=== PATIENT | female | born 1995 | race Caucasian/White ===

== ENCOUNTER 2023-10-25 12:21 | Inpatient (IN) | payer OTHER ==
[2023-10-25] MEDS ORDERED: morphine CARPU-JECT 4 MG/1 ML DISP.SYRIN IVPUSH ONE ×2 (13:07→19:01)
[2023-10-25] MEDS ORDERED: morphine SULFATE 4 MG/ML VIAL ONE ×2 (13:17→19:05)
[2023-10-25] MEDS ORDERED: ONDANSETRON 4 MG/2 ML VIAL IVPUSH ONE (13:26)
[2023-10-25] MEDS ORDERED: ONDANSETRON 4 MG/2 ML VIAL ONE (13:27)
[2023-10-25 13:47] LABS: BASO % 0.3 % (0-2.0); EOS % 0.4 % (0-4.5); HEMATOCRIT 40.3 % (32.4-45.2); HEMOGLOBIN 13.4 GM/dL (10.7-15.3); LYMPH % 10.5 % (8-40); MCH 28.1 pg (25.7-33.7); MCHC 33.3 g/dl (32.0-36.0); MEAN CELL VOLUME 84.5 fl (80-96); MEAN PLT VOLUME 9.3 fl (7.5-11.1); MONO % 4.6 % (3.8-10.2); NEUT % 84.2 % (42.8-82.8); PLATELET COUNT 321 10^3/uL (134-434); RBC 4.77 M/mm3 (3.60-5.2); RDW 13.4 % (11.6-15.6); WHITE BLOOD COUNT 13.4 K/mm3 (4.0-10.0)
[2023-10-25 13:51] LABS: EPI CELLS >36 /uL (0-25.1); HCG,QUALITATIVE URINE Negative; HYALINE CASTS 1 /uL (0-3.1); URINE APPEARANCE CLEAR; URINE BACTERIA 205 /uL (0-1359); URINE BILIRUBIN NEGATIVE (NEGATIVE); URINE COLOR YELLOW; URINE GLUCOSE (UA) NEGATIVE (NEGATIVE); URINE KETONE NEGATIVE (NEGATIVE); URINE LEUK ESTERASE 2+ (NEGATIVE); URINE NITRITE NEGATIVE (NEGATIVE); URINE PROTEIN NEGATIVE (NEGATIVE); URINE RBC 18 /uL (0-23.9); URINE UROBILINOGEN 0.2 mg/dL (0.2-1.0); URINE WBC 51 /uL (0-25.8)
[2023-10-25 13:55] LABS: INR 0.96 (0.83-1.09); PROTHROMBIN TIME (PATIENT) 11.1 SEC (9.7-13.0)
[2023-10-25 14:17] LABS: POTASSIUM 4.1 mmol/L (3.5-5.1)
[2023-10-25 14:21] LABS: ALBUMIN 3.8 g/dl (3.4-5.0); BLOOD UREA NITROGEN 5.8 mg/dL (7-18); CALCIUM 8.8 mg/dL (8.5-10.1)
[2023-10-25 14:25] LABS: CREATININE 0.6 mg/dL (0.55-1.3)
[2023-10-25 14:26] LABS: BILIRUBIN,TOTAL 0.8 mg/dL (0.2-1); TOT PROT 7.4 g/dl (6.4-8.2)
[2023-10-25] MEDS ORDERED: ACETAMINOPHEN 1000 MG/100 ML BAG IVPB ONE (15:29)
[2023-10-25] MEDS ORDERED: ACETAMINOPHEN INJECTION 100 ML IVPB ONE (17:10)
[2023-10-25] MEDS ORDERED: CEFOXITIN SODIUM 2 GM in DEXTROSE 5%-WATER - 100 ML IVPB ONE (18:19)
[2023-10-25] MEDS ORDERED: ONDANSETRON 4 MG/2 ML VIAL IVPUSH PRN (21:37)
[2023-10-25 23:56] VITALS: BMI 29.2
[2023-10-26] MEDS: ACETAMINOPHEN 1000 MG/100 ML BAG IVPB PRN ×3 (00:01→15:05)
[2023-10-26] MEDS: LACTATED RINGERS SOLUTION 1,000 ML/1,000 ML INFUS.BAG IV SCH ×2 (00:02→15:24)
[2023-10-26] MEDS: AMPICILLIN NA/SULBACTAM NA 3 GM in SODIUM CHLORIDE 100 ML IVPB SCH ×4 (01:34→22:00)
[2023-10-26] MEDS ORDERED: AMPICILLIN NA/SULBACTAM NA 3 GM in SODIUM CHLORIDE 100 ML IVPB SCH (02:00)
[2023-10-26 08:31] LABS: BASO % 0.3 % (0-2.0); EOS % 0.1 % (0-4.5); HEMATOCRIT 36.8 % (32.4-45.2); HEMOGLOBIN 12.1 GM/dL (10.7-15.3); LYMPH % 4.4 % (8-40); MCH 28.4 pg (25.7-33.7); MEAN CELL VOLUME 86.1 fl (80-96); MEAN PLT VOLUME 9.4 fl (7.5-11.1); MONO % 7.2 % (3.8-10.2); PLATELET COUNT 259 10^3/uL (134-434); RBC 4.27 M/mm3 (3.60-5.2); RDW 13.4 % (11.6-15.6); WHITE BLOOD COUNT 16.5 K/mm3 (4.0-10.0)
[2023-10-26 08:42] LABS: POTASSIUM 3.6 mmol/L (3.5-5.1)
[2023-10-26 08:45] LABS: ALBUMIN 3.6 g/dl (3.4-5.0); MAGNESIUM 1.7 mg/dL (1.8-2.4)
[2023-10-26 08:46] LABS: BLOOD UREA NITROGEN 4.1 mg/dL (7-18)
[2023-10-26 08:48] LABS: PHOSPHOROUS 3.1 mg/dL (2.5-4.9)
[2023-10-26 08:49] LABS: CREATININE 0.6 mg/dL (0.55-1.3)
[2023-10-26 08:50] LABS: BILIRUBIN,TOTAL 1.6 mg/dL (0.2-1); TOT PROT 6.8 g/dl (6.4-8.2)
[2023-10-26] MEDS ORDERED: morphine SULFATE 4 MG/ML VIAL IVPUSH ONE (09:38)
[2023-10-26] MEDS ORDERED: FAMOTIDINE 20 MG/50 ML IVPB 20 MG/50 ML MG IVPB SCH (10:00)
[2023-10-26] MEDS ORDERED: PROPOFOL 20 ML ONE (12:50)
[2023-10-26] MEDS ORDERED: KETOROLAC TROMETHAMINE 30 MG/1 ML VIAL ONE (12:50)
[2023-10-26] MEDS ORDERED: LIDOCAINE HCL/PF 2% SDV 5ML VIAL ONE (12:50)
[2023-10-26] MEDS ORDERED: ONDANSETRON 4 MG/2 ML VIAL ONE (12:50)
[2023-10-26] MEDS ORDERED: ROCURONIUM BROMIDE 50 MG/5 ML SYRINGE ONE (12:51)
[2023-10-26] MEDS ORDERED: MIDAZOLAM HCL 2 MG/2 ML SINGLE DOSE VIAL ONE (13:48)
[2023-10-26] MEDS ORDERED: BUPIVACAINE HCL/PF 0.25% (2.5MG/ML) 10 ML VIAL ONE (15:18)
[2023-10-26] MEDS ORDERED: MAGNESIUM 1GM/D5W 100ML - 100 ML IVPB IVPB ONE (15:28)
[2023-10-26] MEDS ORDERED: HYDROmorphone HCl 2 MG/ML VIAL IVPB PRN (15:29)
[2023-10-26] MEDS ORDERED: ONDANSETRON 4 MG/2 ML VIAL IVPUSH PRN ×2 (16:49→18:37)
[2023-10-26] MEDS ORDERED: LACTATED RINGERS SOLUTION 1,000 ML IV SCH (17:00)
[2023-10-26] MEDS ORDERED: SUGAMMADEX SODIUM 200 MG/2 ML VIAL ONE (17:18)
[2023-10-26] MEDS ORDERED: BUPIVACAINE HCL/PF 0.25% (2.5MG/ML) 10 ML VIAL IJ ONE (17:22)
[2023-10-26] MEDS ORDERED: oxyCODONE HCL 5 MG TABLET PO PRN (18:37)
[2023-10-26] MEDS ORDERED: SODIUM CHLORIDE 1,000 ML IV SCH (18:37)
[2023-10-26] MEDS ORDERED: ACETAMINOPHEN 500 MG TABLET (FP) PO PRN (21:00)
[2023-10-26] MEDS: FAMOTIDINE 20 MG/50 ML IVPB 20 MG/50 ML MG IVPB SCH (22:08)
[2023-10-26] MEDS: oxyCODONE HCL 5 MG TABLET PO PRN (22:11)
[2023-10-27] MEDS: AMPICILLIN NA/SULBACTAM NA 3 GM in SODIUM CHLORIDE 100 ML IVPB SCH ×3 (03:05→15:13)
[2023-10-27] MEDS: oxyCODONE HCL 5 MG TABLET PO PRN ×2 (04:30→10:13)
[2023-10-27] MEDS: FAMOTIDINE 20 MG/50 ML IVPB 20 MG/50 ML MG IVPB SCH ×2 (10:12→22:13)
[2023-10-27 10:51] LABS: HEMATOCRIT 34.3 % (32.4-45.2); HEMOGLOBIN 11.6 GM/dL (10.7-15.3); MCH 29.1 pg (25.7-33.7); MCHC 33.9 g/dl (32.0-36.0); MEAN PLT VOLUME 9.5 fl (7.5-11.1); PLATELET COUNT 278 10^3/uL (134-434); RBC 3.99 M/mm3 (3.60-5.2); RDW 13.3 % (11.6-15.6); WHITE BLOOD COUNT 13.1 K/mm3 (4.0-10.0)
[2023-10-27] MEDS ORDERED: KETOROLAC TROMETHAMINE 30 MG/1 ML VIAL IVPUSH ONE (11:30)
[2023-10-27 11:41] LABS: ANISOCYTOSIS 0; MACROCYTOSIS 0; POTASSIUM 3.5 mmol/L (3.5-5.1)
[2023-10-27 11:44] LABS: BLOOD UREA NITROGEN 3.8 mg/dL (7-18); CALCIUM 8.9 mg/dL (8.5-10.1)
[2023-10-27 11:47] LABS: CREATININE 0.6 mg/dL (0.55-1.3)
[2023-10-27] MEDS ORDERED: oxyCODONE HCL 5 MG TABLET PO ONE (12:30)
[2023-10-27] MEDS ORDERED: ACETAMINOPHEN 1000 MG/100 ML BAG IVPB ONE (12:30)
[2023-10-27 15:04] VITALS: RESP 18
[2023-10-27] MEDS ORDERED: IBUPROFEN 600 MG TABLET (FP) PO PRN (15:59)
[2023-10-27] MEDS: ACETAMINOPHEN 500 MG TABLET (FP) PO SCH (16:42)
[2023-10-27] MEDS: AMOX TR/POT CLAV 875MG/125MG TABLETS (FP) PO SCH (17:31)
[2023-10-28] MEDS: ACETAMINOPHEN 500 MG TABLET (FP) PO SCH ×2 (00:45→09:18)
[2023-10-28] MEDS: oxyCODONE HCL 5 MG TABLET PO PRN ×2 (01:48→07:27)
[2023-10-28 06:04] VITALS: BP 96/58; PULSE 75; TEMP 98.7
[2023-10-28] MEDS: FAMOTIDINE 20 MG/50 ML IVPB 20 MG/50 ML MG IVPB SCH (09:18)
[2023-10-28] MEDS: AMOX TR/POT CLAV 875MG/125MG TABLETS (FP) PO SCH (09:18)
== END 2023-10-28 11:28 | disposition home or self-care (01) | DRG 225 ==
LOC: JER 12:21 → JERBED 19:21 → J8W 22:12
PROVIDERS: ADMIT Internal Medicine; ATTEND Nurse Practitioner Family
PROC: 0DTJ4ZZ Resection of Appendix, Percutaneous Endoscopic Approach (ICD-10-PCS; principal; 2023-10-26 16:30)
DX: K35.891 Other acute appendicitis without perforation, with gangrene (principal); N73.9 Female pelvic inflammatory disease, unspecified; R10.9 Unspecified abdominal pain
CPT/HCPCS: 36415; 74177-TC; 80048; 80053; 81003; 83690; 83735; 84100; 84703; 85025; 85610; 86850; 86900; 86901; 87086; 88304-TC; 94760; 99285-25; Q9967

== ENCOUNTER 2024-04-17 11:07 | Emergency (ER) | payer OTHER ==
[2024-04-17 11:11] VITALS: BP 107/74; PULSE 83; RESP 20; TEMP 98.3; BMI 30.4
[2024-04-17] MEDS ORDERED: ONDANSETRON *ODT* 4 MG TABLET ONE (11:46)
[2024-04-17] MEDS: ONDANSETRON *ODT* 4 MG TABLET SL ONE (11:51)
[2024-04-17 11:58] LABS: EPI CELLS 28 /uL (0-25.1); HYALINE CASTS 1 /uL (0-3.1); URINE APPEARANCE CLEAR; URINE BACTERIA 116 /uL (0-1359); URINE BILIRUBIN NEGATIVE (NEGATIVE); URINE COLOR YELLOW; URINE GLUCOSE (UA) NEGATIVE (NEGATIVE); URINE KETONE NEGATIVE (NEGATIVE); URINE LEUK ESTERASE 2+ (NEGATIVE); URINE NITRITE NEGATIVE (NEGATIVE); URINE PROTEIN NEGATIVE (NEGATIVE); URINE UROBILINOGEN 0.2 mg/dL (0.2-1.0); URINE WBC 119 /uL (0-25.8)
[2024-04-17 12:01] LABS: HCG,QUALITATIVE URINE Negative
[2024-04-17] MEDS: SODIUM CHLORIDE 1,000 ML IV STA (12:17)
[2024-04-17 12:40] LABS: URINE RBC 85 /uL (0-23.9)
== END 2024-04-17 13:44 | disposition home or self-care (01) ==
LOC: JER 11:07
PROC: 3E0337Z Introduction of Electrolytic and Water Balance Substance into Peripheral Vein, Percutaneous Approach (ICD-10-PCS; principal; 2024-04-17)
DX: A08.4 Viral intestinal infection, unspecified (principal); R11.2 Nausea with vomiting, unspecified; R10.13 Epigastric pain; R10.30 Lower abdominal pain, unspecified
CPT/HCPCS: 81003; 84703; 87086; 99284-25; Q0162

== ENCOUNTER 2024-10-24 01:39 | Emergency (ER) | payer OTHER ==
[2024-10-24 01:52] VITALS: RESP 18; TEMP 98.6; BMI 27.4
[2024-10-24] MEDS ORDERED: MORPHINE SULFATE 2 MG/ML SYRINGE ONE (02:33)
[2024-10-24] MEDS: morphine CARPU-JECT 2 MG/1 ML DISP.SYRIN IVPUSH ONE (02:41)
[2024-10-24] MEDS: SODIUM CHLORIDE 1,000 ML IV STA (02:41)
[2024-10-24 02:53] LABS: BASO % 0.3 % (0-2.0); EOS % 1.2 % (0-4.5); HEMATOCRIT 38.3 % (32.4-45.2); HEMOGLOBIN 12.9 GM/dL (10.7-15.3); LYMPH % 31.5 % (8-40); MCH 28.5 pg (25.7-33.7); MCHC 33.5 g/dl (32.0-36.0); MEAN PLT VOLUME 8.2 fl (7.5-11.1); MONO % 6.5 % (3.8-10.2); NEUT % 60.5 % (42.8-82.8); PLATELET COUNT 344 10^3/uL (134-434); RBC 4.51 M/mm3 (3.60-5.2); RDW 12.9 % (11.6-15.6)
[2024-10-24 03:15] LABS: CHLORIDE 106 mmol/L (98-107); SODIUM 139 mmol/L (136-145)
[2024-10-24 03:17] LABS: INR 0.99 (0.83-1.09); PROTHROMBIN TIME (PATIENT) 11.4 SEC (9.7-13.0)
[2024-10-24 03:19] LABS: ALBUMIN 4.1 g/dl (3.4-5.0); ANION GAP 8 mmol/L (4-13); BLOOD UREA NITROGEN 8.5 mg/dL (7-18); CALCIUM 9.6 mg/dL (8.5-10.1); CO2 25 mmol/L (21-32); GLUCOSE,RANDOM 88 mg/dL (74-106)
[2024-10-24 03:20] LABS: ACTIVATED PTT 32.5 SECONDS (25.2-36.5)
[2024-10-24 03:23] LABS: CREATININE 0.7 mg/dL (0.55-1.3); PHOSPHOROUS 3.2 mg/dL (2.5-4.9); SGOT/AST 10 U/L (15-37); SGPT/ALT 13 U/L (13-61)
[2024-10-24 03:24] LABS: TOT PROT 7.5 g/dl (6.4-8.2)
[2024-10-24 03:26] LABS: ALK PHOS 58 U/L (45-117)
[2024-10-24 03:27] VITALS: BP 140/71; PULSE 78
[2024-10-24 03:33] LABS: LACTIC ACID 2.3 mmol/L (0.4-2.0)
[2024-10-24 03:52] LABS: PH,URINE 5.5 (5.0-8.0); URINE APPEARANCE CLOUDY; URINE BILIRUBIN NEGATIVE (NEGATIVE); URINE COLOR YELLOW; URINE GLUCOSE (UA) NEGATIVE (NEGATIVE); URINE KETONE TRACE (NEGATIVE); URINE LEUK ESTERASE 3+ (NEGATIVE); URINE NITRITE NEGATIVE (NEGATIVE); URINE PROTEIN NEGATIVE (NEGATIVE); URINE UROBILINOGEN 0.2 mg/dL (0.2-1.0)
[2024-10-24] MEDS ORDERED: CEFTRIAXONE 1 G/50 ML PREMIX 50 ML IVPB ONE (04:09)
[2024-10-24] MEDS: CEFTRIAXONE 1 GM in DEXTROSE 5%-WATER - 50 ML IVPB ONE (04:13)
[2024-10-24 06:29] LABS: EPI CELLS 26.7 /uL (0-25.1); HYALINE CASTS 1.23 /uL (0-3.1); URINE BACTERIA 263.6 /uL (0-1359); URINE RBC 38.5 /uL (0-23.9); URINE WBC 836.2 /uL (0-25.8); YEAST NONE SEEN (NEGATIVE)
== END 2024-10-24 05:41 | disposition home or self-care (01) ==
LOC: JER 01:39
PROC: 3E03329 Introduction of Other Anti-infective into Peripheral Vein, Percutaneous Approach (ICD-10-PCS; principal; 2024-10-24)
PROC: 3E033NZ Introduction of Analgesics, Hypnotics, Sedatives into Peripheral Vein, Percutaneous Approach (ICD-10-PCS; 2024-10-24)
PROC: 3E0337Z Introduction of Electrolytic and Water Balance Substance into Peripheral Vein, Percutaneous Approach (ICD-10-PCS; 2024-10-24)
DX: N30.90 Cystitis, unspecified without hematuria (principal); R10.32 Left lower quadrant pain; R00.0 Tachycardia, unspecified; I10 Essential (primary) hypertension
CPT/HCPCS: 36415; 76856-TC; 80053; 81003; 83605; 83690; 83735; 84100; 84702; 84703; 85025; 85610; 85730; 86850; 86900; 86901; 87086; 99284-25